=== PATIENT | female | born 1985 ===

== ENCOUNTER 2023-10-28 16:49 | Inpatient (IN) | payer OTHER ==
[2023-10-28 17:46] LABS: #Monocytes 0.2 thou/uL (0.11-0.59); #Neutrophils 4.3 thou/uL (1.40-6.50); %Lymphocytes 17.6 % (21.0-51.0); %Monocytes 3.3 % (0.0-10.0); %Neutrophils 78.9 % (42.0-75.0); Hematocrit 44.8 % (36.0-47.0); Hemoglobin 15.6 g/dL (12.0-16.0); Mean Corpuscular HGB CONC 34.8 g/dL (32.0-36.0); Mean Corpuscular Hemoglobin 30.1 pg (27.0-31.0); Mean Corpuscular Volume 86.5 fl (78.0-98.0); Mean Platelet Volume 11.8 fL (7.4-10.4); Platelet Count 134 10x3/uL (130-400); RBC Distribution Width 13.1 % (11.5-14.5); Red Blood Cell (RBC) Count 5.18 mill/uL (4.20-5.40); White Blood Cell (WBC) Count 5.4 10x3/uL (4.8-10.8)
[2023-10-28] MEDS ORDERED: Acetaminophen 500 MG TAB ONE (17:54)
[2023-10-28] MEDS ORDERED: Ondansetron PF 4 MG/2 ML Vial ONE (17:54)
[2023-10-28] MEDS ORDERED: Dicyclomine 20 MG/2 ML VIAL ONE (17:54)
[2023-10-28] MEDS ORDERED: Ketorolac Tromethamine 30 MG/ML VIAL ONE (17:54)
[2023-10-28 17:58] LABS: Bacteria/HPF None Seen HPF (None Seen); Bilirubin Negative (Negative); Blood, Urine Negative (Negative); CAUTI Indications for Culture Fever or rigors; Clarity Clear (Clear); Glucose, Urine (Dipstick) Greater than 1000 mg/dL (Negative); Ketone, Urine Greater than 150 mg/dL (Negative); Leukocyte Negative Leu/uL (Negative); Nitrite Negative (Negative); Protein, Urine (Dipstick) 50 mg/dL (Neg-Trace); RBC/HPF 0-3 HPF (0-3); Squamous Epithelial 0-3 HPF (0-3); Urobilinogen Normal mg/dL (Less than 2); WBC/HPF 0-3 HPF (0-3)
[2023-10-28 17:59] LABS: Pregnancy Test - Urine (BHCG) Negative (Negative); Pregu Control Background? CLEAR/WHITE (CLR/WHITE); Pregu Control Bar Appear? YES (CONTROL BAR); Urine Culture Reflex No No
[2023-10-28 18:07] LABS: ALT (SGPT) 33 U/L (8-55); AST (SGOT) 54 U/L (5-34); Alkaline Phosphatase 193 U/L (40-110); Anion Gap 21 mmol/L (10-20); BUN (Urea Nitrogen) 6 mg/dL (7.0-18.7); Bilirubin, Total 0.3 mg/dL (0.2-1.2); Calc. Creatinine Clearance 0 mL/min (70-130); Calcium 8.4 mg/dL (7.8-10.44); Carbon Dioxide 17 mmol/L (22-29); Chloride 99 mmol/L (98-107); Estimated GFR 82; Glucose 371 mg/dL (70-105); Lipase 39 U/L (8-78); Sodium 133 mmol/L (136-145)
[2023-10-28 18:20] LABS: INR-International Normal Ratio 0.9; Prothrombin Time 12.9 sec (12.0-14.7)
[2023-10-28 18:22] LABS: SARS-CoV-2 NAA Rapid Test Not Detected (NotDetected)
[2023-10-28 18:47] LABS: Actual Bicarbonate (HCO3v) 17.2 mEq/L (22-28); Analyzer IN Cardio ER; Base Excess -7.8 mEq/L (-2.0 to +3.0); Calcium, Ionized (venous) 1.05 mmol/L (1.16-1.32); Chloride (VBG) 98 mmol/L (98-106); Hematocrit-VBG 42 % (36.0-47.0); Hemoglobin (Hb) 14.3 g/dL (11.7-15.5); Potassium (VBG) 3.66 mmol/L (3.70-5.30); Sodium 132 mmol/L (133-146); pH (venous) 7.325 (7.32-7.43)
[2023-10-28 19:25] LABS: Magnesium 1.4 mg/dL (1.6-2.6)
[2023-10-28] MEDS ORDERED: Magnesium 2 GM/50 ML BAG (IN WATER) ONE (20:23)
[2023-10-28] MEDS ORDERED: INSULIN REGULAR IN 0.9 % NACL 100 UNITS/100 ML BAG ONE (20:23)
[2023-10-28] MEDS ORDERED: Potassium Chloride 20 MEQ/100 ML PREMIX BAG ONE (20:42)
[2023-10-28] MEDS ORDERED: NS 0.9% w/ 20 MEQ KCL 1,000 ML ONE (20:45)
[2023-10-28] MEDS ORDERED: Ondansetron ODT 4 MG TAB PO PRN (21:12)
[2023-10-28] MEDS ORDERED: Ondansetron PF 4 MG/2 ML Vial IVP PRN (21:12)
[2023-10-28] MEDS ORDERED: HumaLOG 300 UNITS/3 ML VIAL SC PRN (21:18)
[2023-10-28] MEDS ORDERED: Dextrose 5% in Water 1,000 ML IV PRN (21:18)
[2023-10-28] MEDS ORDERED: Glucagon 1 MG/ML KIT IM PRN (21:18)
[2023-10-28] MEDS ORDERED: Dextrose 50% Abboject 50 ML SYRINGE SLOW IVP PRN (21:18)
[2023-10-28] MEDS ORDERED: Ibuprofen 600 MG TAB PO PRN (21:30)
[2023-10-28] MEDS ORDERED: Sodium Chloride 0.9% 1,000 ML IV SCH (21:30)
[2023-10-28] MEDS ORDERED: Electrolyte Replacement Protocol 1 EACH FS SCH (21:30)
[2023-10-28 21:57] VITALS: BMI 30.7
[2023-10-28] MEDS ORDERED: Magnesium Sulfate In Water 4 GM in Premix 1 BAG IVPB SCH (22:00)
[2023-10-28] MEDS: cefTRIAXone\\ROCEPHIN 2 GM in Sodium Chloride 0.9% 100 ML IVPB SCH (22:12)
[2023-10-28] MEDS ORDERED: Vancomycin (BATCH) 1.5 GM in Premix 1 BAG IVPB SCH (22:15)
[2023-10-28] MEDS: Sodium Chloride 0.9% 1,000 ML IV SCH (23:15)
[2023-10-28 23:42] LABS: Hemoglobin A1c Greater than 14.0 % (4.0-6.0)
[2023-10-29 00:07] LABS: Hemoglobin 13.2 g/dL (12.0-16.0); Mean Corpuscular HGB CONC 33.8 g/dL (32.0-36.0); Mean Corpuscular Hemoglobin 29.9 pg (27.0-31.0); Mean Corpuscular Volume 88.2 fl (78.0-98.0); Mean Platelet Volume 11.3 fL (7.4-10.4); Platelet Count 123 10x3/uL (130-400); RBC Distribution Width 13.2 % (11.5-14.5); Red Blood Cell (RBC) Count 4.42 mill/uL (4.20-5.40)
[2023-10-29 00:11] LABS: Manual Diff?? YES
[2023-10-29 00:12] LABS: Delete Auto Diff?? YES
[2023-10-29 00:27] LABS: Anion Gap 17 mmol/L (10-20); BUN (Urea Nitrogen) 5 mg/dL (7.0-18.7); Calc. Creatinine Clearance 130 mL/min (70-130); Calcium 7.3 mg/dL (7.8-10.44); Carbon Dioxide 19 mmol/L (22-29); Chloride 104 mmol/L (98-107); Estimated GFR 107; Glucose 175 mg/dL (70-105); Magnesium 3.1 mg/dL (1.6-2.6); Potassium 3.8 mmol/L (3.5-5.1); Sodium 136 mmol/L (136-145)
[2023-10-29 00:34] LABS: Band 35 % (5-11); Burr Cells SLIGHT = 2-5 cells HPF (0-1); CellaVision Operator ID lab.sh2; Lymphocytes 13 % (21-51); Monocytes 4 % (0-10); Neutrophil 48 % (42-75); Ovalocytes SLIGHT = 2-5 cells HPF (0-1); Platelet Adequacy Comment Platelets Decreased; Total Cell Count 100; Vacuoles SLIGHT
[2023-10-29] MEDS: Acetaminophen 325 MG TAB PO PRN ×2 (05:39→18:49)
[2023-10-29] MEDS: Sodium Chloride 0.9% 1,000 ML IV SCH ×3 (05:42→18:49)
[2023-10-29 06:51] LABS: Hematocrit 39.6 % (36.0-47.0); Hemoglobin 13.3 g/dL (12.0-16.0); Mean Corpuscular HGB CONC 33.6 g/dL (32.0-36.0); Mean Corpuscular Hemoglobin 29.8 pg (27.0-31.0); Mean Corpuscular Volume 88.8 fl (78.0-98.0); Mean Platelet Volume 11.5 fL (7.4-10.4); Platelet Count 112 10x3/uL (130-400); RBC Distribution Width 13.4 % (11.5-14.5); Red Blood Cell (RBC) Count 4.46 mill/uL (4.20-5.40)
[2023-10-29 07:06] LABS: Delete Auto Diff?? YES; Manual Diff?? YES
[2023-10-29 07:22] LABS: Anion Gap 17 mmol/L (10-20); BUN (Urea Nitrogen) 4 mg/dL (7.0-18.7); Calc. Creatinine Clearance 134 mL/min (70-130); Calcium 7.2 mg/dL (7.8-10.44); Carbon Dioxide 15 mmol/L (22-29); Chloride 107 mmol/L (98-107); Estimated GFR 106; Glucose 255 mg/dL (70-105); Magnesium 2.1 mg/dL (1.6-2.6); Potassium 3.7 mmol/L (3.5-5.1); Sodium 135 mmol/L (136-145)
[2023-10-29 08:02] LABS: Band 56 % (5-11); Burr Cells MODERATE= 6-15 cells HPF (0-1); CellaVision Operator ID LAB.GE; Lymphocytes 8 % (21-51); Metamyelocyte 3 % (0-0); Monocytes 4 % (0-10); Neutrophil 28 % (42-75); Platelet Adequacy Comment Platelets Decreased; Polychromasia SLIGHT = 2-3 cells HPF (0-2); Reactive Lymphocytes 1 % (0-10); Total Cell Count 102
[2023-10-29] MEDS: metFORMIN 500 MG TAB PO SCH (08:52)
[2023-10-29] MEDS ORDERED: Famotidine/PF 20 mg/2ml Vial SLOW IVP SCH (09:00)
[2023-10-29] MEDS ORDERED: Famotidine 20 MG TAB PO SCH (09:00)
[2023-10-29] MEDS ORDERED: HumaLOG 300 UNITS/3 ML VIAL SC PRN (10:59)
[2023-10-29] MEDS ORDERED: Insulin Glargine 30 UNITS/0.3 ML VIAL SC SCH (11:30)
[2023-10-29] MEDS ORDERED: Oseltamivir 75 MG CAP PO SCH (11:30)
[2023-10-29] MEDS: Vancomycin (BATCH) 1.25 GM in Premix 1 BAG IVPB SCH ×2 (11:40→23:14)
[2023-10-29 19:23] LABS: Legionella Urinary Ag Negative (Negative); Strep pneumo Urine Ag NEGATIVE (NEGATIVE)
[2023-10-29] MEDS ORDERED: cefTRIAXone\\ROCEPHIN 2 GM in Sodium Chloride 0.9% 100 ML IVPB SCH (20:00)
[2023-10-29] MEDS: Oseltamivir 75 MG CAP PO SCH (21:09)
[2023-10-29] MEDS: cefTRIAXone\\ROCEPHIN 2 GM in Sodium Chloride 0.9% 100 ML IVPB SCH (21:09)
[2023-10-30] MEDS: Acetaminophen 325 MG TAB PO PRN (04:17)
[2023-10-30 07:03] LABS: Anion Gap 14 mmol/L (10-20); BUN (Urea Nitrogen) Less than 4 mg/dL (7.0-18.7); Calc. Creatinine Clearance 159 mL/min (70-130); Calcium 7.7 mg/dL (7.8-10.44); Carbon Dioxide 18 mmol/L (22-29); Chloride 105 mmol/L (98-107); Estimated GFR 118; Glucose 213 mg/dL (70-105); Potassium 3.4 mmol/L (3.5-5.1); Sodium 134 mmol/L (136-145)
[2023-10-30] MEDS: Sodium Chloride 0.9% 1,000 ML IV SCH (07:11)
[2023-10-30] MEDS ORDERED: Potassium Chloride 20 MEQ TAB PO SCH (08:00)
[2023-10-30] MEDS ORDERED: Sodium Chloride 0.9% 1,000 ML IV SCH (08:26)
[2023-10-30] MEDS: metFORMIN 500 MG TAB PO SCH (08:34)
[2023-10-30] MEDS: Oseltamivir 75 MG CAP PO SCH ×2 (08:34→20:12)
[2023-10-30] MEDS ORDERED: Insulin Glargine 30 UNITS/0.3 ML VIAL SC SCH ×3 (09:00→10:45)
[2023-10-30 10:31] LABS: Vancomycin, Trough 3.7 ug/mL
[2023-10-30] MEDS: HumaLOG 300 UNITS/3 ML VIAL SC PRN ×2 (10:57→18:04)
[2023-10-30] MEDS ORDERED: Insulin Glargine 30 UNITS/0.3 ML VIAL SC ONE (10:59)
[2023-10-30] MEDS ORDERED: Vancomycin (BATCH) 1.25 GM in Premix 1 BAG IVPB SCH (12:00)
[2023-10-31 06:30] LABS: Anion Gap 14 mmol/L (10-20); BUN (Urea Nitrogen) Less than 4 mg/dL (7.0-18.7); Calc. Creatinine Clearance 162 mL/min (70-130); Carbon Dioxide 23 mmol/L (22-29); Chloride 106 mmol/L (98-107); Estimated GFR 118; Glucose 183 mg/dL (70-105); Potassium 3.2 mmol/L (3.5-5.1); Sodium 140 mmol/L (136-145)
[2023-10-31] MEDS ORDERED: Ipratropium/Albuterol 3 ML NEB NEB PRN (06:42)
[2023-10-31] MEDS ORDERED: Potassium Chloride 20 MEQ TAB PO SCH (09:00)
[2023-10-31] MEDS ORDERED: FLU VACC QS2023-24(6MOS UP)/PF 60 MCG/0.5 ML SYRINGE IM ONE (09:00)
[2023-10-31] MEDS: Oseltamivir 75 MG CAP PO SCH ×2 (09:27→20:19)
[2023-10-31] MEDS: metFORMIN 500 MG TAB PO SCH (09:28)
[2023-10-31] MEDS: Insulin Glargine 30 UNITS/0.3 ML VIAL SC SCH (09:29)
[2023-10-31] MEDS ORDERED: Electrolyte Replacement Protocol 1 EACH FS SCH (10:24)
[2023-10-31] MEDS: HumaLOG 300 UNITS/3 ML VIAL SC PRN (13:46)
[2023-10-31] MEDS: Acetaminophen 325 MG TAB PO PRN (17:23)
[2023-10-31 21:37] LABS: Mycoplasma pneumoniae IgG AB 132 U/mL (0-99); Mycoplasma pneumoniae IgM AB Less than 770 U/mL (0-769)
[2023-11-01 00:50] VITALS: BP 118/81
[2023-11-01] MEDS: HumaLOG 300 UNITS/3 ML VIAL SC PRN ×2 (05:25→12:01)
[2023-11-01 05:44] LABS: Hematocrit 37.4 % (36.0-47.0); Mean Corpuscular HGB CONC 34.8 g/dL (32.0-36.0); Mean Corpuscular Hemoglobin 29.9 pg (27.0-31.0); Mean Platelet Volume 10.7 fL (7.4-10.4); Platelet Count 162 10x3/uL (130-400); RBC Distribution Width 13.2 % (11.5-14.5); Red Blood Cell (RBC) Count 4.35 mill/uL (4.20-5.40); White Blood Cell (WBC) Count 4.3 10x3/uL (4.8-10.8)
[2023-11-01 06:03] LABS: Anion Gap 13 mmol/L (10-20); BUN (Urea Nitrogen) Less than 4 mg/dL (7.0-18.7); Calc. Creatinine Clearance 179 mL/min (70-130); Carbon Dioxide 25 mmol/L (22-29); Chloride 102 mmol/L (98-107); Estimated GFR 121; Glucose 190 mg/dL (70-105); Sodium 137 mmol/L (136-145)
[2023-11-01 07:42] VITALS: TEMP 97.9
[2023-11-01] MEDS ORDERED: Potassium Chloride 20 MEQ TAB PO SCH (08:00)
[2023-11-01] MEDS: Oseltamivir 75 MG CAP PO SCH (08:10)
[2023-11-01] MEDS: metFORMIN 500 MG TAB PO SCH (08:10)
[2023-11-01] MEDS: Insulin Glargine 30 UNITS/0.3 ML VIAL SC SCH (08:11)
[2023-11-01] MEDS ORDERED: Insulin Glargine 30 UNITS/0.3 ML VIAL SC SCH (11:15)
[2023-11-01] MEDS: Acetaminophen 325 MG TAB PO PRN (12:05)
[2023-11-02] MEDS ORDERED: Insulin Glargine 30 UNITS/0.3 ML VIAL SC SCH (09:00)
== END 2023-11-01 16:18 | disposition home or self-care (01) | DRG 871 ==
LOC: ERS 16:49 → IMCU/EMU 21:40 → T4-B 10-29 02:05
PROVIDERS: ADMIT Family Medicine; ATTEND Family Medicine
DX: A41.89 Other specified sepsis (principal); J10.01 Influenza due to other identified influenza virus with the same other identified influenza virus pneumonia; J96.01 Acute respiratory failure with hypoxia; E87.1 Hypo-osmolality and hyponatremia; E83.42 Hypomagnesemia; E11.65 Type 2 diabetes mellitus with hyperglycemia; E86.0 Dehydration; E87.6 Hypokalemia; Z79.84 Long term (current) use of oral hypoglycemic drugs; Z11.52 Encounter for screening for COVID-19
CPT/HCPCS: 36415; 36416; 71046; 80048; 80053; 80202; 81001; 81025; 82010; 82805; 83036; 83605; 83690; 83735; 84145; 85025; 85027; 85610; 85730; 87040; 87081; 87449; 87804; 87899; 93005; 94760; 96361; 96365; 96367; 96375; J0696; J1650; J1815; J1885; J2405; J3370; J3475; J3480; J3490; J7050; Q0162; S0028; U0002